=== PATIENT | male | born 1945 | race Caucasian/White ===

== ENCOUNTER 2019-06-14 07:44 | Day surgery (SDC) | payer OTHER, MEDICARE ==
--- NOTE | 2019-06-14 08:05 | NUR ---
ARRIVED INTO [facility] ESCORTED WITH NURSE TWO PERSON IDENTIFICATION AND PROCEDURE VERIFIED WITH PATIENT
--- NOTE | 2019-06-14 09:38 | NUR ---
CHEST SRAY ORDERED AND READ BY RADIOLOGIST WHOM NOTIFIED DR CALIXTO AND PATIENT ESCORTED OUT AND SENT HOME VSS WITH 97% SAT. HOME WITH ALL BELONIGNGS.
[2019-06-14 13:11] LABS: Automated BF RBC Count 0.002 M/mm3 (0-0); Automated BF WBC Count 0.438 K/mm3 (0-999); Body Fluid WBC Count 438 /mm3 (0-999)
[2019-06-14 13:23] LABS: Cholesterol, Body Fluid 84 mg/dL; Lactate Dehydrogenase, Body Fl 245 U/L; Protein, Body Fluid 4.3 g/dL
[2019-06-14 13:50] LABS: Total Cell Count, Body Fluid 100
[2019-06-14 13:51] LABS: Appearance, Body Fluid Hazy (Clear); Color, Body Fluid Yellow (None-Yellow)
== END 2019-06-15 22:32 | disposition home or self-care (01) ==
LOC: ORSCMMR 07:44 → ORD 08:00 → ORSCMMR 06-15 22:32
PROVIDERS: Internal Medicine Critical Care Medicine
PROC: 0W9B3ZZ Drainage of Left Pleural Cavity, Percutaneous Approach (ICD-10-PCS; principal; 2019-06-14 08:00)
PROC: BB4BZZZ Ultrasonography of Pleura (ICD-10-PCS; principal; 2019-06-14 08:00)
DX: C34.90 Malignant neoplasm of unspecified part of unspecified bronchus or lung (principal); F17.210 Nicotine dependence, cigarettes, uncomplicated; R06.00 Dyspnea, unspecified; Z79.899 Other long term (current) drug therapy; Z79.82 Long term (current) use of aspirin
CPT/HCPCS: 71045; 82465; 82945; 83615; 84157; 89051

== ENCOUNTER 2019-07-03 10:30 | Observation (INO) | payer OTHER, MEDICARE ==
[~2019-07-03] VITALS: Ht 172.7 cm; Wt 175.0 kg
[2019-07-03 11:13] LABS: BASOPHILS ABSOLUTE AUTO 0.03 K/mm3 (0.00-0.23); BASOPHILS PERCENT AUTO 0 % (0-2); EOSINOPHILS ABSOLUTE AUTO 0.08 K/mm3 (0.00-0.68); EOSINOPHILS PERCENT AUTO 1 % (0-6); Hematocrit 41.4 % (37.0-53.0); Hemoglobin 13.9 g/dL (13.5-17.5); IMMATURE GRAN ABSOLUTE AUTO 0.04 K/mm3 (0.00-0.10); IMMATURE GRAN PERCENT AUTO 0 % (0-1); LYMPHOCYTES ABSOLUTE AUTO 0.93 K/mm3 (0.84-5.20); LYMPHOCYTES PERCENT AUTO 9 % (21-46); MONOCYTES ABSOLUTE AUTO 1.03 K/mm3 (0.16-1.47); MONOCYTES PERCENT AUTO 10 % (4-13); Mean Corpuscular HGB 32.6 pg (26.0-34.0); Mean Corpuscular HGB Conc 33.6 g/dL (31.5-36.5); Mean Corpuscular Volume 97 fL (80-100); Mean Platelet Volume 9.6 fL (9.1-12.4); NEUTROPHILS ABSOLUTE AUTO 7.95 K/mm3 (1.96-9.15); NEUTROPHILS PERCENT AUTO 79 % (41-73); Platelet Count 201 K/mm3 (150-400); RDW Coefficient Variation 13.4 % (11.7-14.2); RDW Standard Deviation 47.8 fL (35.1-46.3); Red Blood Cell Count 4.26 M/mm3 (4.30-5.90); White Blood Cell Count 10.06 K/mm3 (4.00-11.30)
[2019-07-03 11:27] LABS: International Normalized Ratio 1.1; Prothrombin Time Results 11.7 Sec (9.7-11.5)
[2019-07-03 11:32] LABS: Anion Gap 7 mmol/L (6-16); Blood Urea Nitrogen 10 mg/dL (8-24); Bun/Creatinine Ratio 12.8 (12.0-20.0); CO2, Blood 25 mmol/L (21-32); Calcium, Blood 9.4 mg/dL (8.5-10.1); Chloride, Blood 91 mmol/L (98-108); Creatinine, Blood 0.78 mg/dL (0.60-1.20); Glomerular Filtration Rate >60 (60-); Glucose, Blood 126 mg/dL (70-99); Potassium, Blood 4.9 mmol/L (3.5-5.5); Sodium, Blood 123 mmol/L (136-145)
[2019-07-03] MEDS ORDERED: ASPI325 PO (12:48)
[2019-07-03] MEDS ORDERED: Robaxin750 MG PO (12:49)
[2019-07-03] MEDS ORDERED: Norco 10-325 T1 EACH PO (12:49)
[2019-07-03] MEDS ORDERED: Nortriptyline H10 MG PO (12:49)
[2019-07-03] MEDS ORDERED: LEVSOD150 PO (12:50)
[2019-07-03] MEDS ORDERED: METO25 PO (12:50)
[2019-07-03] MEDS ORDERED: Lisinopril2.5 MG PO (12:50)
[2019-07-03] MEDS ORDERED: ACET500 PO (12:52)
[2019-07-03] MEDS ORDERED: NIACIN ER750 MG PO (12:52)
[2019-07-03] MEDS ORDERED: Isosorbide Mono30 MG PO (12:52)
[2019-07-03] MEDS ORDERED: NITR.4SL SL (12:53)
--- NOTE | 2019-07-03 14:17 | NUR ---
History, Chart, Medications and Allergies reviewed before start of procedure. Patient confirms NPO status and agrees with scheduled surgery. Pre-Op teaching done. Pt verbalizes understanding. Patient confirms NPO status and agrees with scheduled surgery. PT WITH LABORED BREATHING. LS EXTREMEMLY DIMINISHED ON THE LEFT, WET COUGH. AUDIBLE EXP WHEEZES.
--- NOTE | 2019-07-03 14:25 | NUR ---
REPORT TO CHAPO NAVA TO ASSUME CARE OF PATIENT.
--- NOTE | 2019-07-03 14:36 | NUR ---
ASSUMED CARE AND REPORT FROM MARK RIVERA RN.
--- NOTE | 2019-07-03 17:47 | NUR ---
LATE ENTRY 1729 PALLATIVE CARE NURSE CALEB RN SHOWING PT VIDEO AND DEMONSTRATING HOW TO USE PLEUREX CATHTER. ORD.JND AND ORD.ST WERE CONCERNED ABOUT LETTING THE PT GO HOME WITHOUT IN DEPTH INSTRUCTION SINCE PT LIVES ALONE SO CALEB WAS CALLED.
--- NOTE | 2019-07-03 17:50 | NUR ---
SPOKE WITH DR. YOUNG AND DR. YOUNG STATED [facility] AND [facility]'S SUPPLIES ADINA BE SENT TO HIS HOME. ALSO, HOME HEALTH HAS BEEN ORDERED.
--- NOTE | 2019-07-03 18:10 | NUR ---
Received request from Day Surgery RNs for education of PleurX drain for Pt. Arrived to day surgery with Pt sitting in chair. Pt has PleurX drain bottle attached. Provided video for Pt to watch with this RN pausing and providing extra visual education. After video provided further education and disconnected PleurX bottle. Removed current dressing and cleaned insertion site via steril technique. Placed new cap on tip of drain. Placed new Split dressing and gauze with drain tube between dressing and gauze. Secured with clear adhesive dressing provided by drain kit. Plan is for Home Health to come and assist with PleurX drain. Pt reports no concerns and states no qustions. Palliative Care will remain available.
--- NOTE | 2019-07-03 18:16 | NUR ---
LATE ENTRY 1803 PT MEETS CRITERIA FOR DC. Patient up to Ambulate independently. Gait steady. Discharge instructions reviewed with patient. Patient verbalizes understanding. Copy given to patient to take home. Discharged via wheelchair to private car for ride home.
== END 2019-07-03 18:03 | disposition home or self-care (01) ==
LOC: ER 10:30 → SURS 10:31
PROVIDERS: Emergency Medicine; ADMIT Surgery
DX: C34.92 Malignant neoplasm of unspecified part of left bronchus or lung (principal); J91.0 Malignant pleural effusion; I25.10 Atherosclerotic heart disease of native coronary artery without angina pectoris; J44.9 Chronic obstructive pulmonary disease, unspecified; Z95.1 Presence of aortocoronary bypass graft; Z88.8 Allergy status to other drugs, medicaments and biological substances; Z79.899 Other long term (current) drug therapy; Z79.82 Long term (current) use of aspirin
CPT/HCPCS: 36415; 71045; 80048; 85025; 85610; 93005; 93010; 99284; J0690; J2704; J3010; J7120

== ENCOUNTER 2021-07-16 16:55 | Emergency (ER) | payer OTHER ==
[~2021-07-16] VITALS: Ht 170.2 cm; Wt 65.8 kg
[~2021-07-16 16:55] MED LIST: ACET500 PO; ASPI325 PO; Isosorbide Mono30 MG PO; LEVSOD150 PO; Lisinopril2.5 MG PO; METO25 PO; NIACIN ER750 MG PO; NITR.4SL SL; Norco 10-325 T1 EACH PO; Nortriptyline H10 MG PO; Robaxin750 MG PO
[2021-07-16 18:01] LABS: BASOPHILS ABSOLUTE AUTO 0.01 K/mm3 (0.00-0.23); BASOPHILS PERCENT AUTO 0 % (0-2); EOSINOPHILS PERCENT AUTO 0 % (0-6); Hematocrit 41.8 % (37.0-53.0); Hemoglobin 13.7 g/dL (13.5-17.5); IMMATURE GRAN ABSOLUTE AUTO 0.02 K/mm3 (0.00-0.10); IMMATURE GRAN PERCENT AUTO 0 % (0-1); LYMPHOCYTES ABSOLUTE AUTO 0.38 K/mm3 (0.84-5.20); LYMPHOCYTES PERCENT AUTO 4 % (21-46); MONOCYTES ABSOLUTE AUTO 0.51 K/mm3 (0.16-1.47); MONOCYTES PERCENT AUTO 5 % (4-13); Mean Corpuscular HGB 31.9 pg (26.0-34.0); Mean Corpuscular HGB Conc 32.8 g/dL (31.5-36.5); Mean Corpuscular Volume 97 fL (80-100); Mean Platelet Volume 10.9 fL (9.1-12.4); NEUTROPHILS ABSOLUTE AUTO 8.68 K/mm3 (1.96-9.15); NEUTROPHILS PERCENT AUTO 90 % (41-73); Platelet Count 125 K/mm3 (150-400); RDW Coefficient Variation 14.5 % (11.7-14.2); RDW Standard Deviation 52.2 fL (35.1-46.3); Red Blood Cell Count 4.29 M/mm3 (4.30-5.90)
[2021-07-16 19:14] LABS: Alanine Aminotransfer (ALT/SGP 100 U/L (12-78); Albumin, Blood 4.1 g/dL (3.4-5.0); Albumin/Globulin Ratio 1.1 (0.8-1.8); Alk Phos 152 U/L (50-136); Anion Gap 7 mmol/L (6-16); Aspartate Aminotrans (AST/SGOT 50 U/L (12-37); Bilirubin, Total 0.8 mg/dL (0.1-1.0); Blood Urea Nitrogen 23 mg/dL (8-24); Bun/Creatinine Ratio 29.6 (12.0-20.0); CO2, Blood 26 mmol/L (21-32); Calcium, Blood 10.3 mg/dL (8.5-10.1); Chloride, Blood 99 mmol/L (98-108); Creatinine, Blood 0.78 mg/dL (0.60-1.20); Globulin, Blood 3.7 g/dL (2.2-4.0); Glomerular Filtration Rate >60 (60-); Glucose, Blood 183 mg/dL (70-99); Potassium, Blood 3.9 mmol/L (3.5-5.5); Sodium, Blood 132 mmol/L (136-145); Total Protein, Blood 7.8 g/dL (6.4-8.2)
[2021-07-16] MEDS ORDERED: Norco 10-325 T1 EACH PO (20:32)
[2021-07-16] MEDS ORDERED: Amoxicillin875 MG PO (20:32)
[2021-07-16] MEDS ORDERED: ONDA4ODT SL (20:32)
== END 2021-07-16 21:05 | disposition home or self-care (01) ==
LOC: ER 16:55
PROVIDERS: Physician Assistant
DX: K52.9 Noninfective gastroenteritis and colitis, unspecified (principal); C34.90 Malignant neoplasm of unspecified part of unspecified bronchus or lung; I48.91 Unspecified atrial fibrillation; J44.9 Chronic obstructive pulmonary disease, unspecified; I25.10 Atherosclerotic heart disease of native coronary artery without angina pectoris; F17.210 Nicotine dependence, cigarettes, uncomplicated; R79.89 Other specified abnormal findings of blood chemistry; Z88.8 Allergy status to other drugs, medicaments and biological substances; Z79.82 Long term (current) use of aspirin; Z79.899 Other long term (current) drug therapy
CPT/HCPCS: 36415; 74177; 80053; 83690; 84484; 85025; 93005; 93010; 96374; 96375; 99284-25; J0696; J1885; J2405; J3010; Q9967

== ENCOUNTER 2021-10-05 06:55 | Day surgery (SDC) | payer OTHER ==
[~2021-10-05] VITALS: Ht 170.2 cm; Wt 70.9 kg
[~2021-10-05 06:55] MED LIST changes: +ALBU90OI INH; +Amoxicillin875 MG PO; +ONDA4ODT SL
--- NOTE | 2021-10-05 07:32 | NUR ---
PT LAST ATE AT 2100 ON 10/04/21.
--- NOTE | 2021-10-05 10:07 | NUR ---
PATIENT RETURNED FROM THE SHOE FOLDER VIA STRETCHER AND SBAR RECEIVED FROM CARLENE GARCES, RT. RIGHT GROIN CHECKED AND DRESSING INTACT. HEMATOMA MOTED AFTER MANUAL PRESSURE HEMOSTASIS OBTAINED IN THE LAB. NOTIFIED DR. VERA AND MANUAL PRESSURE REHELD AND FEMOSTOP APPLIED. PAITENT REPOSITIONED UP IN THE BED. MONITOR APPLIED AND CALL LIGHT IN REACH. PAIN TO THE RIGHT GROIN NOTED AT 2-3/10 : TORI ALSO HAS A HERNIA IN THAT GROIN. PULSES OBTAINED TO BILATERAL PEDAL, 2+ DP, 1+ PT PALPABLE.
--- NOTE | 2021-10-05 11:29 | NUR ---
LETTYOP REMOVED AND DR. VERA TO THE BEDSIDE FOR EVALUATION OF THE RIGHT GROIN.
--- NOTE | 2021-10-05 12:26 | NUR ---
PATIENT HOB UP 45 DEGREES, VVS. RIGHT GROIN UNCHANGED, CDI, NO HEMATOMA.
--- NOTE | 2021-10-05 12:34 | NUR ---
PATIENT UP OOB TO THE RESTROOM. REPLACED HIS HERNIA STRAP TO THE RIGHT GROIN. NO HEMATOMA NOTED TO THE RIGHT GROIN.
--- NOTE | 2021-10-05 14:01 | NUR ---
[facility] DISCHARGED HOME VIA WHEELCHAIR ATFER REVIEWING DISCHARGE INSTRUCTIONS AND COPIES GIVEN AND PIV REMOVED AND PRESSURE DRESSING APPLIED. RIGHT GROIN STABLE AND NO HEMATOMA NOTED. DAUGHTER IS [employer] HOME. FOLLOW UP APOINTMENT IS WITH Yola BRICEÑO ON 10/26/2021.
== END 2021-10-05 14:30 | disposition home or self-care (01) ==
LOC: MHTC 06:55
DX: R61 Generalized hyperhidrosis (principal); R06.02 Shortness of breath; R07.89 Other chest pain; I25.10 Atherosclerotic heart disease of native coronary artery without angina pectoris; I70.8 Atherosclerosis of other arteries; I10 Essential (primary) hypertension; E78.5 Hyperlipidemia, unspecified; I48.20 Chronic atrial fibrillation, unspecified; Z95.1 Presence of aortocoronary bypass graft; E03.9 Hypothyroidism, unspecified; F17.200 Nicotine dependence, unspecified, uncomplicated; Z88.5 Allergy status to narcotic agent; Z88.8 Allergy status to other drugs, medicaments and biological substances; Z79.82 Long term (current) use of aspirin; Z79.899 Other long term (current) drug therapy
CPT/HCPCS: 93455; C1769; C1894; G0278; J1644; J2250; J3010; J7030; J7040; Q9967

== ENCOUNTER 2023-01-04 02:36 | Day surgery (SDC) | payer OTHER | END 2023-01-04 23:22 | disposition home or self-care (01) | LOC: WOUND 02:36 | DX: M86.671 Other chronic osteomyelitis, right ankle and foot (principal); L89.893 Pressure ulcer of other site, stage 3; I73.9 Peripheral vascular disease, unspecified; I87.2 Venous insufficiency (chronic) (peripheral) | CPT/HCPCS: G0463 ==

== ENCOUNTER 2023-01-11 05:00 | Day surgery (SDC) | payer OTHER | END 2023-01-11 23:06 | disposition home or self-care (01) | LOC: WOUND | DX: M86.671 Other chronic osteomyelitis, right ankle and foot (principal); L89.893 Pressure ulcer of other site, stage 3; J98.4 Other disorders of lung | CPT/HCPCS: G0463 ==

== ENCOUNTER 2023-01-18 02:29 | Day surgery (SDC) | payer OTHER | END 2023-01-18 22:50 | disposition home or self-care (01) | LOC: WOUND 02:29 | DX: M86.671 Other chronic osteomyelitis, right ankle and foot (principal); L89.893 Pressure ulcer of other site, stage 3 | CPT/HCPCS: A9270 ==

== ENCOUNTER 2023-01-25 04:56 | Day surgery (SDC) | payer OTHER | END 2023-01-25 23:16 | disposition home or self-care (01) | LOC: WOUND 04:56 | DX: L89.514 Pressure ulcer of right ankle, stage 4 (principal); M86.671 Other chronic osteomyelitis, right ankle and foot | CPT/HCPCS: A9270 ==

== ENCOUNTER 2023-02-01 01:52 | Day surgery (SDC) | payer OTHER | END 2023-02-01 22:53 | disposition home or self-care (01) | LOC: WOUND 01:52 | DX: L89.514 Pressure ulcer of right ankle, stage 4 (principal); M86.671 Other chronic osteomyelitis, right ankle and foot | CPT/HCPCS: A9270 ==

== ENCOUNTER 2023-02-08 06:06 | Day surgery (SDC) | payer OTHER | END 2023-02-08 23:00 | disposition home or self-care (01) | LOC: WOUND 06:06 | DX: L89.514 Pressure ulcer of right ankle, stage 4 (principal); M86.8X7 Other osteomyelitis, ankle and foot | CPT/HCPCS: A9270 ==

== ENCOUNTER 2023-02-13 09:44 | Day surgery (SDC) | payer OTHER | END 2023-02-13 23:02 | disposition home or self-care (01) | LOC: WOUND 09:44 | DX: L89.514 Pressure ulcer of right ankle, stage 4 (principal); M86.671 Other chronic osteomyelitis, right ankle and foot; Z72.0 Tobacco use | CPT/HCPCS: 99406 ==

== ENCOUNTER 2023-02-22 01:50 | Day surgery (SDC) | payer OTHER | END 2023-02-22 22:36 | disposition home or self-care (01) | LOC: WOUND 01:50 | DX: L89.514 Pressure ulcer of right ankle, stage 4 (principal); M86.671 Other chronic osteomyelitis, right ankle and foot; Z72.0 Tobacco use | CPT/HCPCS: 87071; 87075; 87077; 87147; 87186; 87205; 99406; A9270; G0463 ==

== ENCOUNTER 2023-03-01 02:07 | Day surgery (SDC) | payer OTHER | END 2023-03-01 22:46 | disposition home or self-care (01) | LOC: WOUND 02:07 | DX: L89.514 Pressure ulcer of right ankle, stage 4 (principal); M86.671 Other chronic osteomyelitis, right ankle and foot; J98.4 Other disorders of lung; Z72.0 Tobacco use | CPT/HCPCS: A9270 ==

== ENCOUNTER 2023-03-08 04:04 | Day surgery (SDC) | payer OTHER | END 2023-03-08 22:54 | disposition home or self-care (01) | LOC: WOUND 04:04 | DX: M86.671 Other chronic osteomyelitis, right ankle and foot (principal); L89.514 Pressure ulcer of right ankle, stage 4; Z72.0 Tobacco use | CPT/HCPCS: G0463 ==

== ENCOUNTER 2023-03-29 03:04 | Day surgery (SDC) | payer OTHER | END 2023-03-29 22:46 | disposition home or self-care (01) | LOC: WOUND 03:04 | DX: L89.514 Pressure ulcer of right ankle, stage 4 (principal); L89.513 Pressure ulcer of right ankle, stage 3; L89.620 Pressure ulcer of left heel, unstageable; M86.671 Other chronic osteomyelitis, right ankle and foot; Z72.0 Tobacco use | CPT/HCPCS: A9270 ==

== ENCOUNTER 2023-04-03 11:23 | Observation (INO) | payer OTHER ==
[~2023-04-03] VITALS: Ht 170.2 cm; Wt 59.0 kg
[2023-04-03] MEDS ORDERED: Lactated Ringer's 1,000 ML IV ONE (12:00)
[2023-04-03] MEDS ORDERED: Cefepime HCl 1,000 MG in NS 50 ML IV ONE (12:05)
[2023-04-03] MEDS ORDERED: Ipratropium/Albuterol SulF 2.5-0.5MG/3 ML Amp INH ONE (12:10)
[2023-04-03 12:14] LABS: BASOPHILS ABSOLUTE AUTO 0.01 K/mm3 (0.00-0.23); BASOPHILS PERCENT AUTO 0 % (0-2); EOSINOPHILS ABSOLUTE AUTO 0.02 K/mm3 (0.00-0.68); EOSINOPHILS PERCENT AUTO 0 % (0-6); Hematocrit 28.8 % (37.0-53.0); Hemoglobin 9.7 g/dL (13.5-17.5); IMMATURE GRAN ABSOLUTE AUTO 0.03 K/mm3 (0.00-0.10); IMMATURE GRAN PERCENT AUTO 0 % (0-1); LYMPHOCYTES ABSOLUTE AUTO 0.94 K/mm3 (0.84-5.20); LYMPHOCYTES PERCENT AUTO 13 % (21-46); MONOCYTES ABSOLUTE AUTO 0.62 K/mm3 (0.16-1.47); MONOCYTES PERCENT AUTO 8 % (4-13); Mean Corpuscular HGB 32.9 pg (26.0-34.0); Mean Corpuscular HGB Conc 33.7 g/dL (31.5-36.5); Mean Corpuscular Volume 98 fL (80-100); Mean Platelet Volume 11.2 fL (9.1-12.4); NEUTROPHILS ABSOLUTE AUTO 5.83 K/mm3 (1.96-9.15); NEUTROPHILS PERCENT AUTO 78 % (41-73); Platelet Count 80 K/mm3 (150-400); RDW Coefficient Variation 18.5 % (11.7-14.2); RDW Standard Deviation 66.3 fL (35.1-46.3); Red Blood Cell Count 2.95 M/mm3 (4.30-5.90); White Blood Cell Count 7.45 K/mm3 (4.00-11.30)
[2023-04-03 12:30] LABS: Albumin, Blood 3.1 g/dL (3.4-5.0); Bilirubin, Total 0.6 mg/dL (0.1-1.0); Calcium, Blood 9.5 mg/dL (8.5-10.1); Creatinine, Blood 1.68 mg/dL (0.60-1.20); Potassium, Blood 5.5 mmol/L (3.5-5.5); Total Protein, Blood 6.1 g/dL (6.4-8.2)
[2023-04-03] MEDS ORDERED: Nicotine Polacrilex 2 MG Gum PO PRN (13:00)
[2023-04-03 13:03] LABS: Influenza A Negative (NEGATIVE); Influenza B Negative (NEGATIVE)
[2023-04-03 13:16] LABS: SARS-Cov-2 (COVID-19) PCR, MMC NEGATIVE (NEGATIVE)
[2023-04-03] MEDS ORDERED: Vancomycin HCL 1,000 MG in NS 100 ML IV ONE (13:30)
[2023-04-03] MEDS ORDERED: Ondansetron HCl 2 MG / ML 2ML Vial IV ONE (14:00)
[2023-04-03 15:23] LABS: Source, Urine Straight Cath
[2023-04-03 15:27] LABS: Appearance, Urine Clear (Clear); Bilirubin, Urine Neg (Neg); Blood, Urine Neg (Neg); Color, Urine Yellow (P-Yellow); Glucose Qualitative, Urine Neg (Neg); Ketones, Urine Neg (Neg); Leukocyte Esterase, Urine Neg (Neg); Nitrite, Urine Neg (Neg); Protein, Urine Neg (Neg); Specific Gravity, Urine 1.015 (1.003-1.022); Urobilinogen, Urine NORM (Normal); pH, Urine 6.5 (5.0-8.0)
[2023-04-03] MEDS ORDERED: FLU VACC QS2023-24(6MOS UP)/PF 60 MCG/0.5 ML SYRINGE IM SCH (16:20)
[2023-04-03] MEDS ORDERED: Acetaminophen 325 MG TABLET PO PRN (16:20)
--- NOTE | 2023-04-03 16:21 | NUR ---
pt seen in ER, He has been having projectile vomiting and severe constipation. According to his sister he is recievieng cancer treatment. Pt states appetite is poor. He has been falling frequently. He states he is drinking lots of fluids but cant keep them down. Recent increase in weith loss Pt having more headaches and weakness. He was making statements to physician that he does not want to do anythin he is dying. Spoke with his siter who is a retired nurse known to this conventional mortgage underwriter. she states he is very independent and often refuses help. He is a very heavy two pack a day smoker. Pt has multiple bruishes and looks unkept. he is very engaged in conversation. He thinks he filled out an advanced directive at the OR. Family states he is service connected. He has been getting regular wound care. pt wants treatment just not life support. We discussed DNR with limited treatment. He refused a nicotine patch. Advised pt that we will do all we can to get him past this infection. Sister came in and had supportive conversation. Will see giovanye he is at in his cancer diagnosis and adjust plan of care. kps score is 40%.
[2023-04-03] MEDS ORDERED: Sennosides 8.6 MG Tab PO SCH (17:00)
[2023-04-03] MEDS ORDERED: Docusate Sodium 100 MG Cap PO SCH (17:00)
[2023-04-03] MEDS ORDERED: Polyethylene Glycol 3350 17 gm PO PRN (17:00)
[2023-04-03] MEDS ORDERED: NS 1,000 ML IV SCH (17:00)
[2023-04-03] MEDS ORDERED: Polyethylene Glycol 3350 17 gm PO ONE (17:00)
[2023-04-03] MEDS ORDERED: Ranolazine 500 MG ER Tablet PO SCH (17:00)
[2023-04-03 19:00] VITALS: BP 98/61
[2023-04-03 19:15] VITALS: BP 107/68
[2023-04-03 20:00] VITALS: BP 96/58
[2023-04-03 21:00] VITALS: BP 103/60
[2023-04-03] MEDS ORDERED: Lactobacil 2-S.Thermo-Bifido 1 1 Cap PO SCH (21:00)
[2023-04-03] MEDS ORDERED: ASMANEX HFA13 G6 INH (21:11)
[2023-04-03] MEDS ORDERED: TAGRISSO80 MG PO (21:18)
[2023-04-03] MEDS ORDERED: NITR.4SL (21:18)
[2023-04-03] MEDS ORDERED: RANOLAZINE ER500 M2 PO (21:19)
[2023-04-03] MEDS ORDERED: Methocarbamol500 MG PO (21:20)
[2023-04-03] MEDS ORDERED: Norco 10-325 T1 EACH PO (21:21)
[2023-04-03] MEDS ORDERED: NIAC500ER PO (21:22)
[2023-04-03] MEDS ORDERED: STIOLTO RESPIMAT4 G1 INH (21:23)
[2023-04-03] MEDS ORDERED: FERSU300 PO (21:26)
[2023-04-03] MEDS ORDERED: LACT10SY PO (21:26)
[2023-04-03] MEDS ORDERED: METO25ER PO (21:27)
[2023-04-03] MEDS ORDERED: GUAI600T33 PO ×2 (21:27)
[2023-04-03] MEDS ORDERED: DIGOX125 MC1 PO (21:28)
[2023-04-03] MEDS ORDERED: Aspir 8181 MG PO (21:28)
[2023-04-03] MEDS ORDERED: Lisinopril2.5 MG PO (21:29)
[2023-04-03] MEDS ORDERED: LEVO T PO (21:30)
[2023-04-03] MEDS ORDERED: FURO20 PO (21:30)
[2023-04-03] MEDS ORDERED: ALBU90OI INH (21:32)
[2023-04-03] MEDS ORDERED: K-TAB ER20 ME1 PO (21:33)
[2023-04-03] MEDS ORDERED: MUPIROCIN2210 TP (21:34)
[2023-04-03] MEDS ORDERED: HYDROcodone 5-APAP 325 TAB PO PRN (21:55)
[2023-04-03 22:00] VITALS: BP 94/59
[2023-04-03] MEDS ORDERED: Albuterol HFA200 ACT/6.7 GM INH INH PRN (22:00)
[2023-04-03] MEDS ORDERED: Mometasone Furoate Inhaler 220 mcg 14 ACT INH SCH (22:15)
[2023-04-03] MEDS ORDERED: Tiotropium Bromide 2.5 MCG/ACT MIST INHAL (10 ACT/4 GM) INH SCH (22:15)
[2023-04-03 23:00] VITALS: BP 102/70
[2023-04-04] VITALS (9 sets, daily range): BP systolic 95–106; BP diastolic 56–83
[2023-04-04 04:08] LABS: BASOPHILS ABSOLUTE AUTO 0.01 K/mm3 (0.00-0.23); BASOPHILS PERCENT AUTO 0 % (0-2); EOSINOPHILS ABSOLUTE AUTO 0.02 K/mm3 (0.00-0.68); EOSINOPHILS PERCENT AUTO 0 % (0-6); Hematocrit 27.4 % (37.0-53.0); Hemoglobin 9.3 g/dL (13.5-17.5); IMMATURE GRAN ABSOLUTE AUTO 0.03 K/mm3 (0.00-0.10); IMMATURE GRAN PERCENT AUTO 0 % (0-1); LYMPHOCYTES ABSOLUTE AUTO 0.91 K/mm3 (0.84-5.20); LYMPHOCYTES PERCENT AUTO 12 % (21-46); MONOCYTES PERCENT AUTO 8 % (4-13); Mean Corpuscular HGB 33.1 pg (26.0-34.0); Mean Corpuscular HGB Conc 33.9 g/dL (31.5-36.5); Mean Corpuscular Volume 98 fL (80-100); Mean Platelet Volume 10.7 fL (9.1-12.4); NEUTROPHILS ABSOLUTE AUTO 6.33 K/mm3 (1.96-9.15); NEUTROPHILS PERCENT AUTO 80 % (41-73); Platelet Count 71 K/mm3 (150-400); RDW Coefficient Variation 18.4 % (11.7-14.2); RDW Standard Deviation 65.4 fL (35.1-46.3); Red Blood Cell Count 2.81 M/mm3 (4.30-5.90)
[2023-04-04 04:39] LABS: Alanine Aminotransfer (ALT/SGP 20 U/L (12-78); Albumin, Blood 2.8 g/dL (3.4-5.0); Alk Phos 69 U/L (50-136); Anion Gap 4 mmol/L (6-16); Aspartate Aminotrans (AST/SGOT 25 U/L (12-37); Bilirubin, Total 0.5 mg/dL (0.1-1.0); Blood Urea Nitrogen 43 mg/dL (8-24); Bun/Creatinine Ratio 32.8 (12.0-20.0); CO2, Blood 27 mmol/L (21-32); Calcium, Blood 8.6 mg/dL (8.5-10.1); Chloride, Blood 101 mmol/L (98-108); Creatinine, Blood 1.31 mg/dL (0.60-1.20); Globulin, Blood 2.8 g/dL (2.2-4.0); Glomerular Filtration Rate 57 (60-); Glucose, Blood 115 mg/dL (70-99); Potassium, Blood 5.5 mmol/L (3.5-5.5); Sodium, Blood 132 mmol/L (136-145); Total Protein, Blood 5.6 g/dL (6.4-8.2); Vancomycin, Random 9.1 ug/mL
[2023-04-04] MEDS ORDERED: Calcium Carbonate 500 MG Tab Chew PO ONE (05:45)
[2023-04-04] MEDS ORDERED: Levothyroxine Sodium 0.1 MG Tab PO SCH (06:00)
--- NOTE | 2023-04-04 06:13 | NUR ---
EOS: PATIENT IS ALERT AND ORIENTED X 4 PLEASANT COOPERATIVE WITH CARE, DENIES CHEST PAIN PRESSURE OR SOB. INCREASED BLOOD PRESSURES, MAP AT 70, EVEN WITH PAIN MEDICATIONS ON BOARD, DID DEVELOPE ACID REFLUX INFORMED RESIDENT 1 X TUMS, PATIENT IMPROVED. AFIB IN THE 70-80'S INFUSING FLUIDS AT 100 (NS). PATIENT ABLE TO VOID URINAL, DENIES NEED TO MOVE TO RECLINER AT THIS TIME. PATIENT WOUND DOCUMENTATION IN CHART.
[2023-04-04] MEDS ORDERED: Ipratropium/Albuterol SulF 2.5-0.5MG/3 ML Amp INH SCH (08:55)
[2023-04-04] MEDS ORDERED: Metoprolol Succinate 25 MG TABCR PO SCH (09:00)
[2023-04-04] MEDS ORDERED: Enoxaparin 30 MG/0.3 ML SYR SC SCH (09:00)
[2023-04-04] MEDS ORDERED: Enoxaparin 40 MG/0.4 ML SYR SC SCH (09:00)
[2023-04-04] MEDS ORDERED: Aspirin 81 MG TabEC PO SCH (09:00)
[2023-04-04] MEDS ORDERED: Digoxin 0.125 MG Tab PO SCH (09:00)
[2023-04-04] MEDS ORDERED: Methocarbamol 500 MG Tab PO SCH (09:00)
[2023-04-04 09:02] LABS: Digoxin (Lanoxin) 2.07 ug/mL (0.80-2.00)
[2023-04-04] MEDS ORDERED: Docusate Sodium/Senna 1 Tab PO PRN (09:10)
[2023-04-04] MEDS ORDERED: Lactated Ringer's 1,000 ML IV ONE (15:15)
[2023-04-04] MEDS ORDERED: Lactulose 20 GM/30 ML UDC PO ONE (15:40)
--- NOTE | 2023-04-04 16:43 | NUR ---
ASSUMED CARE OF PT AT 0700 THIS AM. PT RESTING QUIETLY IN BED ON ASSESSMENT. PT IS ALER AND ORIENTED X 4, ABLE TO MAKE HIS NEEDS KNOWN, AND USE CALL LIGHT APPROPRIATELY. PT STATES HE HAS NOT HAD A BM "FOR A WEEK." SENNA, DOCUSATE AND MIRALAX GIVEN THIS AM. PT STATES HE ALSO TAKES LACTULOSE AT HOME FOR HIS CHRONIC CONSTIPATION, DOSE OF THAT GIVEN THIS EVENING PER MD ORDERS. BPs HAVE BEEN BETWEEN 90-110s SYSTOLIC. PT IS ABLE TO STAND AND PIVOT FROM BED TO CHAIR AND BACK. PT'S SKIN IS EXTREMELY FRAGILE, COVERED IN BRUISES WITH SKIN TEARING AND BLEEDING ON TOP. INPT PRODUCE SERVICE TEAM MEMBER SAGRARIO IN TO SEE PT TODAY, WOUND CARE ORDERS IN THE CHART. PT IS TO HAVE HEELS FLOATED AT ALL TIMES. DRESSINGS CHANGED BY SAGRARIO TODAY. PLAN WAS TO DISCHARGE PT HOME WITH HOME HEALTH AND FAMILY TODAY, BUT PT IS BEING HELD OVERNIGHT IN THE HOSPITAL FOR LACK OF BM. PLAN IS TO GO HOME TOMORROW. CALL LIGHT IN REACH, BED IN LOWEST POSITION. WILL CONTINUE TO MONITOR AND TREAT, GIVE REPORT TO NOC SHIFT RN AT THE END OF MY SHIFT.
[2023-04-04] MEDS ORDERED: Pantoprazole Sodium 40 MG Injection IV ONE (19:00)
--- NOTE | 2023-04-04 19:15 | NUR ---
pt staying one more day. discussion with family on discharge plan. pt will go hame with family caregivers and home healthe for wound care and pt. pt pain controlled mild anexiety denies difficulty with withdrawl. leadership development manager updated.
[2023-04-04] MEDS ORDERED: Sod Phosphate/Sod Biphosphate 132 ML BTL PR ONE (23:25)
[2023-04-05 03:01] VITALS: BP 111/85
--- NOTE | 2023-04-05 04:07 | NUR ---
SHIFT SUMMARY PT ALERT AND ORIENTED X 4, COOPERATIVE WITH CARE AND ABLE TO MAKE HIS NEEDS KNOWN. PERRLA. PT ON RA AND MAINTAINED 02 SATURATION ABOVE 92% AND DENIED SOB ALL SHIFT. HIS HR SR 70S-90S, HE HAS DENIED CHEST PAIN/PRESSURE ALL SHIFT. PER DAY SHIFT, PT HAS NOT HAD A BOWEL MOVEMENT IN ABOUT 5 DAYS. FLEET ENEMA WAS ADMINISTERED PER EMAR, AND PT HAD MEDIUM BOWEL MOVEMENT AFTER. PT USES URINAL INDEPENDENTLY. PT'S SKIN IS EXTREMELY FRAGILE, COVERED IN BRUISES WITH SKIN TEARING AND BLEEDING ON TOP. PER DAY SHIFT, OPERATING ROOM COORDINATOR WAS IN TO SEE PT YESTERDAY DAY SHIFT. ALL DRESSINGS CHANGED BY OPERATING ROOM COORDINATOR YESTERDAY DAY SHIFT ARE C/D/I. MEPILEX CHANGED ON PTS COCCYX THIS SHIFT. HEELS HAVE BEEN FLOATED ALL SHIFT. Q 2 TURNS. FLUIDS RUNNING PER EMAR. PT CURRENTLY RESTING IN BED WITH TV ON AND CALL LIGHT WITHIN REACH.
[2023-04-05 07:47] VITALS: BP 96/68
--- NOTE | 2023-04-05 08:04 | NUR ---
NURSING PCU DAYSHIFT: Assumed care of pt at approx 0700. A/O, very pleasant, cooperative w/care. Mild YSLETA DEL SUR, soft spoken, able to express needs. Skin fragile, several wounds documented in chart, dressings in place, scattered bruising t/o. General weakness, able to reposition w/minimal assistance. Denies any pain/discomfort at rest. No tele in place, HR irregular, no c/o CP/pressure, SBP 96 prior to a.m. meds. L/S with inspiratory wheezes and coarse upper lobes, dim bases, occ harsh cough producing thin/stringy/clear sputum, O2 sat mid to upper 90's on RA, denies dyspnea. Abd mildly distended which pt states is normal, BT hypoactive, c/o chronic constipation, voiding w/o difficulty per pt. PIV x2, s/l this a.m. Pt denies any current needs or questions regarding plan of care. Plan for discharge this a.m. at approx 1000, family aware. Discussed importance of repositioning and deep breathing exercises. RT at bedside for breathing tx, physician at bedside for assessment. Pt currently sitting up in bed having breakfast, call light in reach, cont to monitor for any changes.
[2023-04-05 08:57] LABS: Albumin, Blood 2.7 g/dL (3.4-5.0); Anion Gap 5 mmol/L (6-16); Blood Urea Nitrogen 25 mg/dL (8-24); CO2, Blood 24 mmol/L (21-32); Calcium, Blood 7.8 mg/dL (8.5-10.1); Chloride, Blood 106 mmol/L (98-108); Creatinine, Blood 0.78 mg/dL (0.60-1.20); Glomerular Filtration Rate 93 (60-); Glucose, Blood 116 mg/dL (70-99); Phosphorus, Blood 1.7 mg/dL (2.5-4.9); Sodium, Blood 135 mmol/L (136-145)
[2023-04-05] MEDS ORDERED: Ferrous Sulfate 325 MG Tab PO SCH (09:00)
[2023-04-05] MEDS ORDERED: NICO2 PO (09:20)
[2023-04-05] MEDS ORDERED: PROBIOTIC1 EA13 PO (09:20)
[2023-04-05] MEDS ORDERED: SENN187 PO (09:22)
--- NOTE | 2023-04-05 11:03 | NUR ---
NURSING PCU DISCHARGE SUMMARY: No significant changes noted t/o the a.m. Daughter at bedside, discharge home d/o received and discussed. Pt and family denies any questions regarding instructions or medications, Rx's sent to [facility] pharmacy per pt request. No s/s of acute distress at time of discharge. Escorted from unit via w/c at approx 1045, PIV x2 dc'd w/caths intact, personal belongings packed and sent w/pt and family.
== END 2023-04-05 11:02 | disposition home health service (06) ==
LOC: ER 11:23 → PCU 11:24 → ER 18:10 → PCU 18:10
PROVIDERS: Family Medicine; Student in an Organized Health Care Education/Training Program; ADMIT Internal Medicine
DX: I95.9 Hypotension, unspecified (principal); I25.10 Atherosclerotic heart disease of native coronary artery without angina pectoris; J44.9 Chronic obstructive pulmonary disease, unspecified; Z95.1 Presence of aortocoronary bypass graft; F17.210 Nicotine dependence, cigarettes, uncomplicated; C34.90 Malignant neoplasm of unspecified part of unspecified bronchus or lung; N17.9 Acute kidney failure, unspecified; E87.1 Hypo-osmolality and hyponatremia; M86.8X7 Other osteomyelitis, ankle and foot; I10 Essential (primary) hypertension; I48.0 Paroxysmal atrial fibrillation; I35.0 Nonrheumatic aortic (valve) stenosis; D69.6 Thrombocytopenia, unspecified; Z66 Do not resuscitate; Z79.82 Long term (current) use of aspirin; Z79.899 Other long term (current) drug therapy; Z88.5 Allergy status to narcotic agent; Z88.8 Allergy status to other drugs, medicaments and biological substances
CPT/HCPCS: 36415; 71045; 73630; 80053; 80069; 80162; 80202; 81003; 83605; 83735; 84145; 85025; 85651; 86140; 87040; 87804; 87807; 93005; 93010; 94640; 94664; 94760; 94762; 96365; 96367; 96375; 97116; 97162; 97530; 99285-25; A9270; C9113; G0378; J0692; J1650; J2405; J3370; J7030; J7120; U0002

== ENCOUNTER 2023-04-12 03:00 | Day surgery (SDC) | payer OTHER ==
[~2023-04-12 03:00] MED LIST changes: +ASMANEX HFA13 G6 INH; +Aspir 8181 MG PO; +DIGOX125 MC1 PO; +FERSU300 PO; +FURO20 PO; +GUAI600T33 PO; +K-TAB ER20 ME1 PO; +LACT10SY PO; +LEVO T PO; +METO25ER PO; +MUPIROCIN2210 TP; +Methocarbamol500 MG PO; +NIAC500ER PO; +NICO2 PO; +NITR.4SL; +PROBIOTIC1 EA13 PO; +RANOLAZINE ER500 M2 PO; +SENN187 PO; +STIOLTO RESPIMAT4 G1 INH; +TAGRISSO80 MG PO
== END 2023-04-12 23:21 | disposition home or self-care (01) ==
LOC: WOUND 03:00
DX: L89.514 Pressure ulcer of right ankle, stage 4 (principal); L89.623 Pressure ulcer of left heel, stage 3; L89.152 Pressure ulcer of sacral region, stage 2; M86.671 Other chronic osteomyelitis, right ankle and foot; Z72.0 Tobacco use
CPT/HCPCS: G0463

== ENCOUNTER 2023-04-19 02:54 | Day surgery (SDC) | payer OTHER | END 2023-04-19 23:03 | disposition home or self-care (01) | LOC: WOUND 02:54 | DX: L89.514 Pressure ulcer of right ankle, stage 4 (principal); L89.513 Pressure ulcer of right ankle, stage 3; L89.623 Pressure ulcer of left heel, stage 3; L89.152 Pressure ulcer of sacral region, stage 2; S41.111A Laceration without foreign body of right upper arm, initial encounter; M86.671 Other chronic osteomyelitis, right ankle and foot; L89.154 Pressure ulcer of sacral region, stage 4; Z72.0 Tobacco use; X58.XXXA Exposure to other specified factors, initial encounter | CPT/HCPCS: G0463 ==

== ENCOUNTER 2023-04-26 02:56 | Day surgery (SDC) | payer OTHER ==
[2023-04-26] MEDS ORDERED: NIAC500 PO (12:44)
[2023-04-26] MEDS ORDERED: ISOMON20 PO (12:45)
[2023-04-26] MEDS ORDERED: Lasix20 MG PO (15:55)
== END 2023-04-26 23:19 | disposition home or self-care (01) ==
LOC: WOUND 02:56
DX: L89.514 Pressure ulcer of right ankle, stage 4 (principal); L89.623 Pressure ulcer of left heel, stage 3; L89.152 Pressure ulcer of sacral region, stage 2; M86.671 Other chronic osteomyelitis, right ankle and foot; S41.119A Laceration without foreign body of unspecified upper arm, initial encounter; Z72.0 Tobacco use
CPT/HCPCS: G0463

== ENCOUNTER 2023-04-26 12:24 | Emergency (ER) | payer OTHER ==
[~2023-04-26] VITALS: Ht 170.2 cm; Wt 68.0 kg
[2023-04-26] MEDS ORDERED: NIAC500 PO (12:44)
[2023-04-26] MEDS ORDERED: ISOMON20 PO (12:45)
[2023-04-26 13:39] LABS: BASOPHILS ABSOLUTE AUTO 0.02 K/mm3 (0.00-0.23); BASOPHILS PERCENT AUTO 1 % (0-2); EOSINOPHILS ABSOLUTE AUTO 0.04 K/mm3 (0.00-0.68); EOSINOPHILS PERCENT AUTO 1 % (0-6); Hemoglobin 8.6 g/dL (13.5-17.5); IMMATURE GRAN ABSOLUTE AUTO 0.02 K/mm3 (0.00-0.10); IMMATURE GRAN PERCENT AUTO 1 % (0-1); LYMPHOCYTES ABSOLUTE AUTO 0.79 K/mm3 (0.84-5.20); LYMPHOCYTES PERCENT AUTO 18 % (21-46); MONOCYTES ABSOLUTE AUTO 0.48 K/mm3 (0.16-1.47); MONOCYTES PERCENT AUTO 11 % (4-13); Mean Corpuscular HGB 34.5 pg (26.0-34.0); Mean Corpuscular HGB Conc 31.9 g/dL (31.5-36.5); Mean Corpuscular Volume 108 fL (80-100); Mean Platelet Volume 10.6 fL (9.1-12.4); NEUTROPHILS ABSOLUTE AUTO 3.08 K/mm3 (1.96-9.15); NEUTROPHILS PERCENT AUTO 70 % (41-73); Platelet Count 148 K/mm3 (150-400); RDW Coefficient Variation 19.4 % (11.7-14.2); RDW Standard Deviation 77.5 fL (35.1-46.3); Red Blood Cell Count 2.49 M/mm3 (4.30-5.90); White Blood Cell Count 4.43 K/mm3 (4.00-11.30)
[2023-04-26 13:55] LABS: Albumin, Blood 2.6 g/dL (3.4-5.0); Albumin/Globulin Ratio 0.8 (0.8-1.8); Bilirubin, Total 0.6 mg/dL (0.1-1.0); Bun/Creatinine Ratio 20.6 (12.0-20.0); Calcium, Blood 8.3 mg/dL (8.5-10.1); Creatinine, Blood 0.68 mg/dL (0.60-1.20); Globulin, Blood 3.1 g/dL (2.2-4.0); Potassium, Blood 4.2 mmol/L (3.5-5.5); Total Protein, Blood 5.7 g/dL (6.4-8.2)
[2023-04-26 14:31] LABS: Influenza A, PCR NEGATIVE (NEGATIVE); Influenza B, PCR NEGATIVE (NEGATIVE); Resp Syncytial Virus, PCR NEGATIVE (NEGATIVE); SARS-Cov-2 (COVID-19) PCR, MMC NEGATIVE (NEGATIVE)
[2023-04-26 14:56] LABS: Digoxin (Lanoxin) 0.95 ug/mL (0.80-2.00)
[2023-04-26 15:30] VITALS: BP 125/80
[2023-04-26] MEDS ORDERED: Lasix20 MG PO (15:55)
== END 2023-04-26 15:58 | disposition home or self-care (01) ==
LOC: ER 12:24
PROVIDERS: Emergency Medicine
DX: I50.9 Heart failure, unspecified (principal); J44.9 Chronic obstructive pulmonary disease, unspecified; C34.90 Malignant neoplasm of unspecified part of unspecified bronchus or lung; I25.10 Atherosclerotic heart disease of native coronary artery without angina pectoris; I48.91 Unspecified atrial fibrillation; F17.210 Nicotine dependence, cigarettes, uncomplicated; Z79.82 Long term (current) use of aspirin; Z79.899 Other long term (current) drug therapy; Z88.5 Allergy status to narcotic agent; Z88.6 Allergy status to analgesic agent; Z88.8 Allergy status to other drugs, medicaments and biological substances
CPT/HCPCS: 0241U; 71046; 80053; 80162; 83735; 83880; 84484; 85025; 99285-25; A9270

== ENCOUNTER 2023-05-17 05:29 | Day surgery (SDC) | payer OTHER ==
[~2023-05-17 05:29] MED LIST changes: +ISOMON20 PO; +Lasix20 MG PO; +NIAC500 PO
== END 2023-05-17 23:08 | disposition home or self-care (01) ==
LOC: WOUND 05:29
DX: L89.514 Pressure ulcer of right ankle, stage 4 (principal); L89.152 Pressure ulcer of sacral region, stage 2; L89.623 Pressure ulcer of left heel, stage 3; M86.671 Other chronic osteomyelitis, right ankle and foot; S41.119A Laceration without foreign body of unspecified upper arm, initial encounter; Z72.0 Tobacco use
CPT/HCPCS: A6213; G0463

== ENCOUNTER 2023-05-24 02:11 | Day surgery (SDC) | payer OTHER | END 2023-05-24 22:52 | disposition home or self-care (01) | LOC: WOUND 02:11 | DX: L89.514 Pressure ulcer of right ankle, stage 4 (principal); I87.2 Venous insufficiency (chronic) (peripheral); L89.152 Pressure ulcer of sacral region, stage 2; L89.623 Pressure ulcer of left heel, stage 3; M86.671 Other chronic osteomyelitis, right ankle and foot; S41.119A Laceration without foreign body of unspecified upper arm, initial encounter; Z72.0 Tobacco use | CPT/HCPCS: A6213; G0463 ==

== ENCOUNTER 2024-08-23 13:57 | Observation (INO) | payer OTHER ==
[~2024-08-23] VITALS: Ht 170.2 cm; Wt 48.2 kg
[2024-08-23 14:09] VITALS: BP 105/69
[2024-08-23] MEDS ORDERED: FentaNYL 50 MCG Patch TOP ONE (14:25)
[2024-08-23] MEDS ORDERED: FentaNYL 12 MCG/HR Patch TOP ONE (14:55)
[2024-08-23] MEDS ORDERED: Atropine Sulfate 1% Opth Soln 2ML BTL SL PRN (16:20)
[2024-08-23] MEDS ORDERED: OxyCODONE HCL 1 MG/ML 5MLUDC PO PRN (16:25)
[2024-08-23] MEDS ORDERED: LORazepam 1 MG Tab PO PRN (16:25)
[2024-08-23] MEDS ORDERED: Promethazine HCl 25 MG Supp PR PRN (16:25)
[2024-08-23] MEDS ORDERED: Promethazine HCl 25 MG Tab PO PRN (16:25)
[2024-08-23] MEDS ORDERED: Nicotine 14 MG PATCH TOP ONE (20:30)
--- NOTE | 2024-08-23 22:20 | NUR ---
TOOK REPORT FROM NATALIE NAVA FROM ED.
[2024-08-24] MEDS ORDERED: POTA10T PO (03:09)
[2024-08-24] MEDS ORDERED: NARCAN4 M1 (03:14)
--- NOTE | 2024-08-24 04:28 | NUR ---
SHIFT SUMMARY NOC PT A/O X 3-4. FORGETFUL AT TIMES, BUT PLEASANT AND COOPERATIVE WITH CARE. ON COMFORT CARE MEASURES FOR FTT. UPON 2 RN SKIN CHECK, PT FOUND WITH MULTIPLE PRESSURE/VENOUS STASIS INJURIES SCATTERED ON BLE. PICTURES IN CHART AND WOUND CARE ORDER IN PLACE. WOUNDS CLEANSED AND DRESSED WITH XEROFORM, KURLEX, AND MEDIPORE TAPE, AND HEEL PROTECTORS. GENERALIZED PAIN BEING MANAGED PER EMAR. PT WILL DISCHARGE ON [facility] ON MONDAY. PT CURRENTLY RESTING WITH BED ALARM ON, BED IN LOWEST POSITION, AND CALL LIGHT WITHIN REACH.
--- NOTE | 2024-08-24 05:48 | NUR ---
SHIFT SUMMARY NOC PT A/O X 2-3. VERY CONFUSED AT TIMES AND REPEADEDLY ASKS "WHAT DO I DO NOW" OVER AND OVER ABOUT A QUESTION THAT HAS BEEN ASNWERED MULTIPLE TIMES, BUT PLEASANT AND COOPERATIVE WITH CARE. ON COMFORT CARE MEASURES FOR FTT. UPON 2 RN SKIN CHECK, PT FOUND WITH MULTIPLE PRESSURE/VENOUS STASIS INJURIES SCATTERED ON BLE. PICTURES IN CHART AND WOUND CARE ORDER IN PLACE. WOUNDS CLEANSED AND DRESSED WITH XEROFORM, KURLEX, AND MEDIPORE TAPE, AND HEEL PROTECTORS. GENERALIZED PAIN BEING MANAGED PER EMAR. PT HAD 2 INC LIQUID BM, AND HAS PUREWICK IN PLACE FOR INCONTINENCE PT WILL DISCHARGE ON [facility] ON MONDAY. PT CURRENTLY RESTING WITH BED ALARM ON, BED IN LOWEST POSITION, AND CALL LIGHT WITHIN REACH.
[2024-08-24] MEDS ORDERED: Nicotine 14 MG PATCH TOP SCH (09:00)
--- NOTE | 2024-08-24 11:03 | NUR ---
CASE CONFERENCE: SPOKE WITH PT AND DAUGHTER (POA) REGARDING MORPHINE ALLERGY. NEITHER THE PATIENT OR DAUGHTER CAN RECALL ANY SPECIFIC REACTION, AND ARE WILLING TO TRY ROXANOL. DISCUSSED WITH DR. BUENROSTRO, WHO AGREES IT IS LIKELY NOT A "TRUE ALLERGY, AND IF HE DOES HAVE SIDE EFFECT OF NAUSEA OR ITCHING, WILL TREAT SIDE EFFECT SYMPTOMS AND D/C ROXANOL. PHARMACY NOTIFIED, ALSO SUPPORTIVE OF THIS PLAN. UPDATED BEDSIDE RN, DISCUSSED PLAN OF CARE CHANGES.
[2024-08-24] MEDS ORDERED: Morphine Sulfate 20 MG/1ML 1 ML Oral Syringe SL PRN (11:05)
--- NOTE | 2024-08-24 13:23 | NUR ---
PT DOING WELL WITH ROXANOL, NO SIDE EFFECTS OR REACTIONS NOTED. DAUGHTER STATES HE WON'T EAT WHEN IN PAIN, AND HE'S CURRENTLY EATING. SHE STATES SHE IS "SO GLAD" THEY DECIDED TO TRY THE ROXANOL HIS PAIN IS BETTER CONTROLLED.
--- NOTE | 2024-08-24 15:29 | NUR ---
1445- PT RATED HIS PAIN 0/10. DENIES ANY PAIN AT THIS TIME.
--- NOTE | 2024-08-24 18:11 | NUR ---
PT CONTINUES DOING WELL WITH ROXANOL, ACHIEVING GOOD PAIN CONTROL WITH NO SIDE EFFECTS. PT'S DAUGHTER STATES SHE HAS APPRECIATED ALL THE HELP AND CONCERN THE STAFF HAS SHOWN FOR HER FATHER. PT NO LONGER GRIMACING, AND HAS BEEN EATING A PORTION OF ALL MEALS TODAY, WHICH DAUGHTER STATES IS RARE THESE DAYS. WILL CONTINUE WITH OVERSITE.
[2024-08-24] MEDS ORDERED: ZINC OXIDE/PETROLATUM, YELLOW 1 APPLIC/71 GM PASTE TOP PRN (18:20)
--- NOTE | 2024-08-25 05:01 | NUR ---
RATING EXAMINER SUMMARY: PT ON COMFORT CARE MEASURES. PT NOTED TO BE AGITATED, HALLUCINATING ABOUT CIGARETTES AND ATTEMPTING TO GET OOB. UNABLE TO REDIRECT PT WITH NON PHARMACOLOGICAL INTERVENTIONS. PT MEDICATED T/O SHIFT FOR PAIN /AGITATION /HALLUCINATOINS; EFFECTIVE. NO NOTED RESPIRTATORY CHANGES. PT HAS NOT UTILIZED CALL LIGHT T/O SHIFT. TURN SCHEDULE IN PLACE AND VISUAL SAFETY CHECK ROUNDING BY THIS NURSE AND BREWER HELPER.. BED IN LOWEST POSITION. CARES ONGOING ORDERED. [facility].
--- NOTE | 2024-08-25 17:07 | NUR ---
1625- NO RESPERATIONS VISIBLE, NO APICAL PULSE HEARD. VERIFIED WITH KIMBERLEY SANCHEZ RN.
[2024-08-26] MEDS ORDERED: FentaNYL 12 MCG/HR Patch TOP SCH (09:00)
== END 2024-08-25 16:25 ==
LOC: ER 13:57 → ERHOLD 13:58 → MEDS 22:28
PROVIDERS: ADMIT Internal Medicine
DX: Z51.5 Encounter for palliative care (principal); R62.7 Adult failure to thrive; C34.90 Malignant neoplasm of unspecified part of unspecified bronchus or lung; E43 Unspecified severe protein-calorie malnutrition; E03.9 Hypothyroidism, unspecified; I25.10 Atherosclerotic heart disease of native coronary artery without angina pectoris; J44.9 Chronic obstructive pulmonary disease, unspecified; F17.200 Nicotine dependence, unspecified, uncomplicated; D64.9 Anemia, unspecified; I48.0 Paroxysmal atrial fibrillation; L89.159 Pressure ulcer of sacral region, unspecified stage; Z88.8 Allergy status to other drugs, medicaments and biological substances; Z88.5 Allergy status to narcotic agent
CPT/HCPCS: 99285; A9270; G0378